=== PATIENT | female | born 1985 | race Caucasian/White ===

== ENCOUNTER → 2017-04-25 | Outpatient (CLI) | payer OTHER ==
[~2017-04-25] MED LIST: ALBU1AER9 INH
[2017-04-25 12:19] LABS: HEMATOCRIT 43.3 % (37-47); HEMOGLOBIN 14.8 g/dL (12.0-16.0); MEAN CORPUSCULAR HEMOGLOBIN 30.8 pg (25-34); MEAN CORPUSCULAR HGB CONC 34.2 g/dl (32-36); PLATELET COUNT 228 K/uL (130-400); RED CELL DISTRIBUTION WIDTH CV 12.6 % (11.5-14.5); RED CELL DISTRIBUTION WIDTH SD 41.1 fL (36.4-46.3); WHITE BLOOD COUNT 7.36 K/uL (4.8-10.8)
== END | disposition home or self-care (01) ==
LOC: C.LAB1850 10:35
PROVIDERS: ATTEND Physician Assistant
DX: N92.6 Irregular menstruation, unspecified (principal)

== ENCOUNTER → 2017-05-21 | Outpatient (CLI) | payer OTHER | END | disposition home or self-care (01) | LOC: C.PAPS 11:38 | PROVIDERS: ATTEND Physician Assistant | DX: Z12.4 Encounter for screening for malignant neoplasm of cervix (principal) ==

== ENCOUNTER 2022-11-05 02:46 | Inpatient (IN) ==
--- NOTE | 2022-11-05 03:07 | Emergency Department Note ---
History of Present Illness General Chief complaint: Chest Pain Stated complaint: CHEST AND BACK PAIN INTERMINTENTLY ON RT SIDE Time Seen by Provider: 11/05/22 02:52 History of Present Illness Maximum Pain Intensity: 3 This 37-year-old female who had a hysterectomy a week ago and continues to smoke presents to the ER complaining of chest pain that goes to her back and shortness of breath. Patient denies abdominal pain, vomiting, diarrhea, flulike illness. Pain started today and has gotten progressively worse. No history of DVT or PE. Home Medications Medication Instructions Recorded Confirmed Type albuterol sulfate 90 mcg/actuation 1 inh inhalation UD PRN for illness 03/08/21 10/19/22 History aerosol inhaler atorvastatin 10 mg tablet 20 mg PO QAM 10/19/22 10/27/22 History sertraline 100 mg tablet (Zoloft) 100 mg PO QAM 10/19/22 10/27/22 History ibuprofen 600 mg tablet 600 mg PO Q8H PRN pain #20 tabs 10/27/22 Rx oxycodone-acetaminophen 5 mg-325 1 tab PO Q6H PRN pain #20 tabs 10/27/22 Rx mg tablet (Percocet) Allergies Allergy/AdvReac Type Severity Reaction Status Date / Time adhesive Allergy Unknown Skin Verified 10/27/22 08:12 blistered under tape (used for gallbladder surgery) hydrocodone Allergy Unknown Itching Verified 10/27/22 08:12 oxycodone [From Percocet] Allergy Unknown Itching Verified 10/27/22 08:12 strawberry Allergy Unknown Rash Verified 10/27/22 08:12 Past Med/Surg History Medical History Anxiety and depression Asthma Diverticular disease Endometriosis History of COVID-19 03/2021 Hypercholesterolemia IBS (irritable bowel syndrome) PCOS (polycystic ovarian syndrome) Surgical History Family history of reaction to anesthesia Daughter- postop hypotension Son- really bad headache Mother- "did not handle anesthesia well and was afraid to be put to sleep" H/O section x3 History of anesthesia reaction Multiple attempts with SAB for initial spinal, had "high spinal" > hx spinal headache/blood patch History of colonoscopy History of esophagogastroduodenoscopy (EGD) History of tooth extraction Hx laparoscopic cholecystectomy 03/2018 S/P scar revision c/s scar endometriosis noted and removed Family History Aunt Cardiac disorder Diabetes Breast cancer maternal - inflammatory Grandmother (Paternal) Cardiac disorder Mother Colorectal cancer, Onset Age: 40 Uncle Colorectal cancer maternal Grandmother (Maternal) Diabetes Other Dyslipidemia Denies family history of Ovarian cancer Social History Smoking Status: Current every day smoker Tobacco Type: Cigarettes Cigarettes Per Day: 6; Second Hand Exposure: No; Do You Dip or Chew Tobacco: No; Hx Alcohol Use: Yes Hx Substance Use: No Preferred Language: Macedonian Communication Ability: Effective Security Alarm Installer Required: No Beliefs That Will Affect Care: None Current Living Situation: Spouse and Family Feels Safe at Home: Yes Assistive Devices: None Review of Systems A total of 10 systems reviewed and were otherwise negative Physical Exam Vital Signs Vital Signs - 24 hr 11/05/22 02:48 11/05/22 03:34 11/05/22 03:36 Temperature 36.8 C Temperature Source Temporal Artery Scan Pulse Rate 82 81 Pulse Rate from SpO2 Sensor Respiratory Rate 18 Respiratory Effort / Characteristics Non-Labored Spontaneous Respiratory Depth Normal Respiratory Pattern Regular Blood Pressure 129/58 L Blood Pressure Mean 81 Blood Pressure Position Semi-fowlers Pulse Oximetry 99 98 Oxygen Delivery Method Room Air Room Air Sepsis Recent Fever Within 48 Hours No Sepsis New/Unexplained Change in Mental Status N/A Sepsis Action Taken by Nursing No Action Required 11/05/22 03:32 11/05/22 04:00 11/05/22 04:30 Temperature Temperature Source Pulse Rate 76 75 77 Pulse Rate from SpO2 Sensor 78 78 79 Respiratory Rate 16 22 15 Respiratory Effort / Characteristics Respiratory Depth Respiratory Pattern Blood Pressure 108/60 94/56 L Blood Pressure Mean 76 68 Blood Pressure Position Pulse Oximetry 98 99 95 Oxygen Delivery Method Room Air Room Air Room Air Sepsis Recent Fever Within 48 Hours Sepsis New/Unexplained Change in Mental Status Sepsis Action Taken by Nursing VITALS: Vitals are noted on the nurse's note and reviewed by myself. Vital signs stable. GENERAL: Pleasant female, in no acute distress, nondiaphoretic, well-developed well-nourished. SKIN: The skin was without rashes, erythema, edema, or bruising. There is no tenting of the skin. Capillary reflex less than 2 seconds. HEAD: Normocephalic atraumatic. EARS: External auditory canals clear, EYES: Pupils equal round and reactive to light and accommodation. Conjunctivae without injection, sclerae without icterus. Extraocular movements intact. NOSE: Patent, turbinates without inflammation or discharge. MOUTH: Mucous membranes moist. Pharynx without erythema or exudate. Uvula midline. Airway patent. Tongue does not deviate. NECK: Supple without nuchal rigidity. No lymphadenopathy. No thyromegaly. Cervical spine is nontender. No JVD. HEART: Regular rate and rhythm LUNGS: Clear to auscultation bilaterally without wheezes, rales or rhonchi. No retractions or accessory muscle use. ABDOMEN: Positive bowel sounds x 4. Normal tympanic percussion. Soft, nonten zeferino, without masses or organomegaly. Blackman sign negative. No guarding or rebound tenderness. No CVA tenderness MUSCULOSKELETAL: No muscle atrophy, erythema, or edema noted. NEURO: Patient was alert and oriented to person place and time. Normal sensation to light and sharp touch. No focal neurological deficits. Course Administered Medications Discontinued Medications Heparin Sodium/Dextrose (Heparin Iv Adult Wt-Based Standard With Bolus Protocol) 1 each IV NOW STA; Protocol Stop: 11/05/22 04:52 Last Admin: 11/05/22 05:04 Dose: Not Given Documented By: HERNANDEZ Acetaminophen (Ofirmev) 1,000 mg in 100 mls @ 400 mls/hr IV NOW STA Stop: 11/05/22 03:59 Last Infusion: 11/05/22 04:19 Dose: 0 mls/hr Documented By: Admin: 11/05/22 03:49 Dose: 400 mls/hr Documented By: HERNANDEZ Ioversol (Ioversol 350 Mg 125ml Prefilled Syringe) 117 ml IV ONCE ONE Stop: 11/05/22 03:28 Last Admin: 11/05/22 03:27 Dose: 117 ml Documented By: ANNIKA Critical Care Time Critical Care Time: Yes Total Critical Care Time: 35 I have personally spent 35 minutes of critical care time in the direct management of this patient. This includes bedside care, interpretation of diagnostic studies, and testing, discussion with consultants, patient, and family members, and other required patient management activities. This 35 minutes is in excess of all separately billable procedures. Medical Decision Making Medical Records Attestation: I reviewed the patient's medical records. Home Medications Current Medication List: was personally reviewed by me Laboratory Data Attestation: I reviewed the patient's lab results. 11/05/22 03:07 11/05/22 03:07 Lab Results 11/05/22 11/05/22 11/05/22 Range/Units 03:07 03:07 03:07 WBC 16.04 H (4.8-10.8) K/ul RBC 4.41 (4.20-5.40) M/uL Hgb 13.7 (12.0-16.0) g/dl POC Hgb (12.0-16.0) g/dl Hct 40.6 (37.0-47.0) % POC Hct (37-47) % MCV 92.1 (80.0-100.0) fL MCH 31.1 (25.0-34.0) pg MCHC 33.7 (32.0-36.0) g/dL RDW Std Deviation 41.0 (36.4-46.3) fL RDW Coeff of Nigel 12.1 (11.5-14.5) % Plt Count 243 (130-400) K/uL MPV 9.6 (9.4-12.4) fL Immature Gran % (Auto) 0.4 % Neut % (Auto) 62.3 % Lymph % (Auto) 22.5 % [place] % (Auto) 8.7 % Eos % (Auto) 5.5 % Baso % (Auto) 0.6 % Neut # (Auto) 9.99 H (1.40-6.50) K/uL Lymph # (Auto) 3.61 H (1.2-3.4) K/uL [place] # (Auto) 1.39 H (0.11-0.59) K/uL Eos # (Auto) 0.89 H (0-0.50) K/uL Baso # (Auto) 0.10 (0-0.2) K/uL Immature Gran # (Auto) 0.06 (0.01-0.20) K/uL PT 9.9 (9.0-12.0) Seconds INR 0.9 (0.9-1.1) APTT 23.4 (21.0-31.0) Seconds PTT Ratio 0.8 POC Sodium (135-144) mmol/L Sodium 134 L (136-145) mmol/L POC Potassium (3.3-5.0) mmol/L Potassium 4.0 (3.5-5.1) mmol/L POC Chloride (101-112) mmol/L Chloride 106 (98-107) mmol/L Carbon Dioxide 21 (21-32) mmol/L POC Total CO2 (24-31) mmol/L Anion Gap 7 (3-11) POC Anion Gap (16-25) mmol/L POC BUN (7-18) mg/dl BUN 16 (6-23) mg/dl Creatinine 0.97 (0.6-1.2) mg/dl POC Creatinine (0.6-1.3) mg/dl Est Cr Clr Drug Dosing 76.9 ml/min Est GFR ( Amer) 87.1 ml/min Est GFR (Non-Af Amer) 75.1 ml/min BUN/Creatinine Ratio 16.5 (10-20) Glucose 92 (70-99(Fasting)) mg/dl POC Glucose (other) (70-99) mg/dl Calcium 9.4 (8.6-10.3) mg/dl POC Ioniz Calcium [place] (1.12-1.32) mmol/l Total Bilirubin 0.3 (0.2-1.0) mg/dl AST 28 (13-39) U/L ALT 51 (7-52) U/L Alkaline Phosphatase 62 (34-104) U/L Troponin I High Sens 4.1 (0-14) pg/ml Total Protein 6.7 (6.0-8.3) gm/dl Albumin 4.0 (3.4-5.0) gm/dl Globulin 2.7 (2.5-4.0) gm/dl Albumin/Globulin Ratio 1.5 (0.9-2) Urine Color Urine Appearance (Clear) Urine pH (4.5-7.5) Ur Specific [place] (1.000-1.030) Urine Protein (Negative) Urine Glucose (UA) (Negative) Urine Ketones (Negative) Urine Blood (Negative) Urine Nitrite (Negative) Urine Bilirubin (Negative) Urine Urobilinogen (Negative) Ur Leukocyte Esterase (Negative) 11/05/22 11/05/22 Range/Units 03:12 03:53 WBC (4.8-10.8) K/ul RBC (4.20-5.40) M/uL Hgb (12.0-16.0) g/dl POC Hgb 13.3 (12.0-16.0) g/dl Hct (37.0-47.0) % POC Hct 39 (37-47) % MCV (80.0-100.0) fL MCH (25.0-34.0) pg MCHC (32.0-36.0) g/dL RDW Std Deviation (36.4-46.3) fL RDW Coeff of Nigel (11.5-14.5) % Plt Count (130-400) K/uL MPV (9.4-12.4) fL Immature Gran % (Auto) % Neut % (Auto) % Lymph % (Auto) % [place] % (Auto) % Eos % (Auto) % Baso % (Auto) % Neut # (Auto) (1.40-6.50) K/uL Lymph # (Auto) (1.2-3.4) K/uL [place] # (Auto) (0.11-0.59) K/uL Eos # (Auto) (0-0.50) K/uL Baso # (Auto) (0-0.2) K/uL Immature Gran # (Auto) (0.01-0.20) K/uL PT (9.0-12.0) Seconds INR (0.9-1.1) APTT (21.0-31.0) Seconds PTT Ratio POC Sodium 137 (135-144) mmol/L Sodium (136-145) mmol/L POC Potassium 4.1 (3.3-5.0) mmol/L Potassium (3.5-5.1) mmol/L POC Chloride 106 (101-112) mmol/L Chloride (98-107) mmol/L Carbon Dioxide (21-32) mmol/L POC Total CO2 21 L (24-31) mmol/L Anion Gap (3-11) POC Anion Gap 15.0 L (16-25) mmol/L POC BUN 19 H (7-18) mg/dl BUN (6-23) mg/dl Creatinine (0.6-1.2) mg/dl POC Creatinine 1.0 (0.6-1.3) mg/dl Est Cr Clr Drug Dosing ml/min Est GFR ( Amer) ml/min Est GFR (Non-Af Amer) ml/min BUN/Creatinine Ratio (10-20) Glucose (70-99(Fasting)) mg/dl POC Glucose (other) 95 (70-99) mg/dl Calcium (8.6-10.3) mg/dl POC Ioniz Calcium [place] 1.14 (1.12-1.32) mmol/l Total Bilirubin (0.2-1.0) mg/dl AST (13-39) U/L ALT (7-52) U/L Alkaline Phosphatase (34-104) U/L Troponin I High Sens (0-14) pg/ml Total Protein (6.0-8.3) gm/dl Albumin (3.4-5.0) gm/dl Globulin (2.5-4.0) gm/dl Albumin/Globulin Ratio (0.9-2) Urine Color Yellow Urine Appearance Clear (Clear) Urine pH 6.0 (4.5-7.5) Ur Specific [place] 1.036 H (1.000-1.030) Urine Protein Negative (Negative) Urine Glucose (UA) Negative (Negative) Urine Ketones Negative (Negative) Urine Blood Negative (Negative) Urine Nitrite Negative (Negative) Urine Bilirubin Negative (Negative) Urine Urobilinogen Negative (Negative) Ur Leukocyte Esterase Negative (Negative) Imaging Data Attestation: I personally reviewed and interpreted this imaging study as follows: Radiologist's Impression: Chest CTA 11/05/22 02:53 CR Exam(s): CTA CHEST IV Amt: 117ml OPTIRAY 350 EXAM: CT Angiography Chest With Intravenous Contrast CLINICAL HISTORY: Reason for exam: Chest Pain, eval for PE, recent OR. TECHNIQUE: Axial computed tomographic angiography images of the chest with intravenous contrast. CTDI is 36.46 mGy and DLP is 851.5 mGy-cm. Automated exposure control was utilized for the study. A dose lowering technique was utilized adhering to the principles of ALARA. MIP reconstructed images were created and reviewed. COMPARISON: 02/01/2015. FINDINGS: Pulmonary arteries: Pulmonary embolus involving subsegmental right lower lobe pulmonary arteries. Aorta: No acute findings. No thoracic aortic aneurysm. Lungs: Unremarkable. No mass. No consolidation. Pleural space: Unremarkable. No significant effusion. No pneumothorax. Heart: Unremarkable. No cardiomegaly. No significant pericardial effusion. No evidence of RV dysfunction. Bones/joints: No acute fracture. No dislocation. Soft tissues: Unremarkable. Lymph nodes: Unremarkable. No enlarged lymph nodes. Gallbladder and bile ducts: Postoperative changes prior cholecystectomy. IMPRESSION: Pulmonary embolus involving subsegmental right lower lobe pulmonary arteries Communications: Call Doctor Pulmonary Embolism Electronically signed by: Marshall Frias MD 11/05/22 04:46 AM MDM Narrative Prior records/ancillary studies reviewed. Triage Nursing notes reviewed. Additional history obtained from family. The patient's history was concerning for chest pain. Differential diagnosis: Etiologies such as cardiac ischemia, aortic dissection, pulmonary embolism, pneumonia, pneumothorax, musculoskeletal, infections, pericarditis, myocarditis, esophageal rupture, gastrointestinal, as well as others were entertained. Physical examination: As above. ER treatment provided: An order was placed for continuous cardiac monitoring. The monitor shows a rate of 60-100 with a sinus rhythm per my interpretation. Patient declined pain medicine Patient was agreeable to Tylenol Medicine is requesting to write for Lovenox for the PE On reassessment the patient felt better. Diagnostic interpretation by me: The electrocardiogram was negative for pathologic change. Order for chest EKG: Normal sinus, normal intervals, no acute ST-T wave changes. Impression normal sinus rhythm independent turbid by myself I think arrhythmia is unlikely. EKG shows normal sinus rhythm with no interval abnormalities such as QT prolongation or WPW. There are no findings to suggest Brugada syndrome. Cardiac monitoring in the emergency department reveals no tachycardic or bradycardic dysrhythmia. Hypertrophic cardiomyopathy was considered but there are no clear historical elements pointing toward this. EKG is not suggestive. The QRS voltage is not extremely large and there are no suggestive Q waves. The labs Independently Interpreted by myself revealed leukocytosis, negative troponin Hypercoagulable work-up ordered for PE Imaging studies: Chest x-ray with no acute consolidation, pneumothorax or free air per my independent interpretation CTA concerning for PE per my independent interpretation. No right heart strain. HEART SCORE: Hx: high/mod/low suspicion: 0 ECG: ST depression/nonspecific changes/normal: 0 Age: Greater than 65/45-64/less than 45: 0 Risk factors: (Hypertension, hyperlipidemia, diabetes, coronary disease, tobacco use, cocaine use): 1 Troponin: Greater than 2 times normal limits/1-2 times normal limits/normal: 0 Total: 1 Consultation: A consultation was placed with the hospitalist. The case was discussed and di agnostics were reviewed. The patient was evaluated in the ER for further treatment. PESI Score Age: 37 Male gender: 0 History of cancer: 0 Heart failure: 0 Chronic lung disease: 0 Pulse >=10/min: 0 Systolic blood pressure <100 mmH Respiratory rate >=0/min: 0 Temperature <36 Celcius: 0 Altered mental status: 0 Arterial oxygen saturation <90 percent: 0 Total: 36 Class I Low risk <66 Class II 66 to 85 Class III High risk 86 to 105 Class IV 106 to 125 Class V >125 Exam and history seem consistent with PE. Labs and diagnostics were independent interpreted by myself. Patient was started on Lovenox per medicine's request. Medicine was consulted and the case was discussed. She will be admitted to the medical service for further evaluation and treatment.By the evaluation outlined above emergent etiologies such as cardiac ischemia, aortic dissection, pneumonia, pneumothorax, infections, pericarditis, myocarditis, gastrointestinal, as well as others were deemed relatively unlikely. The pt informed about the findings as listed above. All questions were answered and pleased with the treatment. The chart was completed utilizing [employer] Speech voice recognition software. Grammatical errors, random word insertions, pronoun errors, and incomplete sentences are an occassional consequence of this system due to software limitations, ambient noise, and hardware issues. Any formal questions or concerns about the content, text, or information contained within the body of this dictation should be directly addressed to the physician research lab assistant for clarification. Impression & Plan Pulmonary embolism Discharge Plan Visit Data Chief Complaint: Chest Pain Stated Complaint: CHEST AND BACK PAIN INTERMINTENTLY ON RT SIDE ED Provider: Shirlene Sinclair ED Midlevel Provider: Theresa Ambriz Discharge Problem: Pulmonary embolism Patient Disposition: Admitted As Inpatient Condition: Good Forms Stand Alone Forms: [facility] Access Prescriptions Prescriptions: No Action albuterol sulfate 90 mcg/actuation Hfa Aerosol Inhaler 1 inh INHALATION UD PRN (Reason: for illness) atorvastatin 10 mg Tablet 20 mg PO QAM sertraline [Zoloft] 100 mg Tablet 100 mg PO QAM oxycodone-acetaminophen [Percocet] 5-325 mg tablet 1 tab PO Q6H PRN (Reason: pain) Qty: 20 0RF ibuprofen 600 mg tablet 600 mg PO Q8H PRN (Reason: pain) Qty: 20 0RF Referrals Referrals: Keturah Saravia DO [Primary Care Provider] - Pulmonary embolism Qualifiers: Pulmonary embolism type: unspecified Chronicity: acute Acute cor pulmonale presence: without acute cor pulmonale Qualified Code(s): I26.99 - Other pulmonary embolism without acute cor pulmonale
[2022-11-05 03:22] LABS: Basophils % (auto) 0.6 %; Eosinophils # (auto) 0.89 K/uL (0-0.50); Eosinophils % (auto) 5.5 %; Hematocrit (blood only) 40.6 % (37.0-47.0); Hemoglobin 13.7 g/dl (12.0-16.0); Immature Granulocytes # (auto) 0.06 K/uL (0.01-0.20); Immature Granulocytes % (auto) 0.4 %; Lymphocytes # (auto) 3.61 K/uL (1.2-3.4); Lymphocytes % (auto) 22.5 %; Mean Corpuscular Hemoglobin 31.1 pg (25.0-34.0); Mean Corpuscular Hgb Conc 33.7 g/dL (32.0-36.0); Mean Corpuscular Volume 92.1 fL (80.0-100.0); Mean Platelet Volume 9.6 fL (9.4-12.4); Monocytes # (auto) 1.39 K/uL (0.11-0.59); Monocytes % (auto) 8.7 %; Neutrophils # (auto) 9.99 K/uL (1.40-6.50); Neutrophils % (auto) 62.3 %; Platelet Count 243 K/uL (130-400); RDW Coefficient of Variation 12.1 % (11.5-14.5); Red Blood Count 4.41 M/uL (4.20-5.40); White Blood Count 16.04 K/ul (4.8-10.8)
[2022-11-05 03:24] LABS: iSTAT Hemoglobin 13.3 g/dl (12.0-16.0); iSTAT Ionized Calcium 1.14 mmol/l (1.12-1.32); iSTAT Potassium 4.1 mmol/L (3.3-5.0)
[2022-11-05] MEDS ORDERED: IOVERSOL 350 MG 125mL Prefilled Syringe IV ONE (03:27)
[2022-11-05 03:36] LABS: Albumin Globulin Ratio 1.5 (0.9-2); BUN Creatinine Ratio 16.5 (10-20); Bilirubin,Total 0.3 mg/dl (0.2-1.0); Calcium 9.4 mg/dl (8.6-10.3); Creatinine Clr Calc Pharmacy 76.9 ml/min; Est GFR (African American) 87.1 ml/min; Est GFR (Non-African American) 75.1 ml/min; Globulin 2.7 gm/dl (2.5-4.0); Total Protein 6.7 gm/dl (6.0-8.3)
[2022-11-05 03:42] LABS: Troponin I High Sensitivity 4.1 pg/ml (0-14)
[2022-11-05] MEDS ORDERED: ACETAMINOPHEN 1,000 MG/100 ML VIAL IV STA (03:45)
[2022-11-05 04:05] LABS: Appearance Urine Clear (Clear); Bilirubin Urine Negative (Negative); Blood Urine Negative (Negative); Color Urine Yellow; Glucose Urine UA Negative (Negative); Ketones Urine Negative (Negative); Leukocyte Esterase Urine Negative (Negative); Nitrite Urine Negative (Negative); Protein Urine Negative (Negative); Specific Gravity Urine 1.036 (1.000-1.030); Urobilinogen Urine Negative (Negative)
[2022-11-05 04:13] LABS: INR 0.9 (0.9-1.1); Partial Thromboplastin Ratio 0.8; Partial Thromboplastin Time 23.4 Seconds (21.0-31.0); Prothrombin Time 9.9 Seconds (9.0-12.0)
--- NOTE | 2022-11-05 04:47 | CT Scan Report ---
Exam(s): CTA CHEST IV Amt: 117ml OPTIRAY 350 EXAM: CT Angiography Chest With Intravenous Contrast CLINICAL HISTORY: Reason for exam: Chest Pain, eval for PE, recent OR. TECHNIQUE: Axial computed tomographic angiography images of the chest with intravenous contrast. CTDI is 36.46 mGy and DLP is 851.5 mGy-cm. Automated exposure control was utilized for the study. A dose lowering technique was utilized adhering to the principles of ALARA. MIP reconstructed images were created and reviewed. COMPARISON: 02/01/2015. FINDINGS: Pulmonary arteries: Pulmonary embolus involving subsegmental right lower lobe pulmonary arteries. Aorta: No acute findings. No thoracic aortic aneurysm. Lungs: Unremarkable. No mass. No consolidation. Pleural space: Unremarkable. No significant effusion. No pneumothorax. Heart: Unremarkable. No cardiomegaly. No significant pericardial effusion. No evidence of RV dysfunction. Bones/joints: No acute fracture. No dislocation. Soft tissues: Unremarkable. Lymph nodes: Unremarkable. No enlarged lymph nodes. Gallbladder and bile ducts: Postoperative changes prior cholecystectomy. IMPRESSION: Pulmonary embolus involving subsegmental right lower lobe pulmonary arteries Communications: Call Doctor Pulmonary Embolism Electronically signed by: Marshall Frias MD 11/05/22 04:46 AM
[2022-11-05] MEDS ORDERED: Heparin IV Adult Wt-Based Standard WITH Bolus Protocol IV STA (04:51)
[2022-11-05] MEDS ORDERED: SODIUM CHLORIDE 0.9% 1000ML 1,000 ML IV ONE (05:03)
[2022-11-05] MEDS ORDERED: HEPARIN SOD (PORCINE) 1000 UNIT/ML IV ONE (05:07)
[2022-11-05] MEDS ORDERED: HEPARIN SODIUM/DEXTROSE 25,000 UNITS/500 ML BAG IV SCH (05:15)
[2022-11-05] MEDS ORDERED: traMADol HCL 50 MG TABLET PO STA (05:47)
--- NOTE | 2022-11-05 05:47 | History & Physical Report ---
Date of Service November 05, 2022 Assessment & Plan (1) Pulmonary embolism: Plan: New onset Recent gynecologic surgery Rule out LE clot as source hyperlipidemia, on statin Rx mood disorder, at baseline ongoing tobacco abuse Medical telemetry Weight-based Lovenox for now (Dr. Santos of [facility] made aware over the phone of patient issue following recent surgery and is agreeable to plan.) Patient expressed interest in Eliquis Rx for home anticoagulation. LE venous Dopplers rule out DVT Analgesia, patient agreeable to tramadol for pain not relieved by Tylenol given troublesome constipation side effects from other narcotics DVT prophylaxis. Lovenox Full code Text document was generated using [employer] voice recognition software. It may contain grammatical or spelling errors. Kindly contact undersigned for clarification of any documentation item in question. History of Present Illness Chief Complaint: Chest pain, shortness of breath Primary Care Provider: Keturah Saravia DO History obtained from patient, family, and records. Medical history significant for hyperlipidemia, mood disorder, ongoing tobacco abuse. Patient underwent robotic assisted laparoscopic hysterectomy, bilateral salpingectomy for menorrhagia/pelvic pain at same-day surgery by [facility] sports psychologist 9 days ago. No unusual bleeding postprocedure. Patient struggled with constipation issues which she attributed to narcotics. Trying to keep active post procedure. Yesterday, patient noted pleuritic right-sided chest pain with shortness of breath. No unusual leg swelling. No prior history of blood clots. Family history of a cousin who had a blood clot attributed to oral contraceptive pills. Patient brought to the ER by for evaluation. 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 Allergies Allergy/AdvReac Type Severity Reaction Status Date / Time adhesive Allergy Unknown Skin Verified 10/27/22 08:12 blistered under tape (used for gallbladder surgery) hydrocodone Allergy Unknown Itching Verified 10/27/22 08:12 oxycodone [From Percocet] Allergy Unknown Itching Verified 10/27/22 08:12 strawberry Allergy Unknown Rash Verified 10/27/22 08:12 Home Medications Medication Instructions Recorded Confirmed Type atorvastatin 10 mg tablet 20 mg PO QAM 10/19/22 10/27/22 History sertraline 100 mg tablet (Zoloft) 100 mg PO QAM 10/19/22 10/27/22 History ibuprofen 600 mg tablet 600 mg PO Q8H PRN pain #20 tabs 10/27/22 Rx ondansetron HCl 4 mg tablet 4 mg PO Q8H PRN Nausea And Vomiting 11/05/22 11/05/22 History Past Med/Surg History Medical History Anxiety and depression Asthma Diverticular disease Endometriosis History of COVID-19 03/2021 Hypercholesterolemia IBS (irritable bowel syndrome) PCOS (polycystic ovarian syndrome) Surgical History Family history of reaction to anesthesia Daughter- postop hypotension Son- really bad headache Mother- "did not handle anesthesia well and was afraid to be put to sleep" H/O section x3 History of anesthesia reaction Multiple attempts with SAB for initial spinal, had "high spinal" > hx spinal headache/blood patch History of colonoscopy History of esophagogastroduodenoscopy (EGD) History of tooth extraction Hx laparoscopic cholecystectomy 03/2018 S/P scar revision c/s scar endometriosis noted and removed Family History Aunt Cardiac disorder Diabetes Breast cancer maternal - inflammatory Grandmother (Paternal) Cardiac disorder Mother Colorectal cancer, Onset Age: 40 Uncle Colorectal cancer maternal Grandmother (Maternal) Diabetes Other Dyslipidemia Denies family history of Ovarian cancer Social History Smoking Status: Current every day smoker Tobacco Type: Cigarettes Cigarettes Per Day: 6; Second Hand Exposure: No; Do You Dip or Chew Tobacco: No; Hx Alcohol Use: Yes Hx Substance Use: No Preferred Language: Azeri Communication Ability: Effective Engineering Supervisor Required: No Beliefs That Will Affect Care: None Current Living Situation: Spouse and Family Feels Safe at Home: Yes Assistive Devices: None Review of Systems Review of Systems: As per HPI, all other systems reviewed and negative Physical Exam Physical Exam: GENERAL: Slightly uncomfortable, obese, tearful, no respiratory distress SKIN: Normal color, warm HEENT: [place] palpebral conjunctivae, no ptosis, dry buccal mucosa NECK : Supple, no tenderness CHEST : CTA, no tenderness HEART : RRR, no obvious murmurs ABDOMEN: Some distention, nontender EXTREMITIES : No LE swelling/tenderness, no other conspicuous deformities noted NEUROLOGIC : Coherent, no facial asymmetry, no other gross focality Results & Data Results & Data Vital Signs (Past 12 Hours) Vital Signs Temp Pulse Resp BP Pulse Ox O2 Del Method 11/05/22 05:30 74 15 96/69 L 98 Room Air 11/05/22 05:12 106/62 11/05/22 05:00 83 18 100/67 98 Room Air 11/05/22 04:30 77 15 94/56 L 95 Room Air 11/05/22 04:00 75 22 108/60 99 Room Air 11/05/22 03:32 76 16 98 Room Air 11/05/22 03:36 98 Room Air 11/05/22 03:34 81 11/05/22 02:48 36.8 C 82 18 129/58 L 99 Room Air Laboratory Results Laboratory Results WBC 16.04 K/ul (4.8-10.8) H 11/05/22 03:07 RBC 4.41 M/uL (4.20-5.40) 11/05/22 03:07 Hgb 13.7 g/dl (12.0-16.0) 11/05/22 03:07 POC Hgb 13.3 g/dl (12.0-16.0) 11/05/22 03:12 Hct 40.6 % (37.0-47.0) 11/05/22 03:07 POC Hct 39 % (37-47) 11/05/22 03:12 MCV 92.1 fL (80.0-100.0) 11/05/22 03:07 MCH 31.1 pg (25.0-34.0) 11/05/22 03:07 MCHC 33.7 g/dL (32.0-36.0) 11/05/22 03:07 RDW Std Deviation 41.0 fL (36.4-46.3) 11/05/22 03:07 RDW Coeff of Nigel 12.1 % (11.5-14.5) 11/05/22 03:07 Plt Count 243 K/uL (130-400) 11/05/22 03:07 MPV 9.6 fL (9.4-12.4) 11/05/22 03:07 Immature Gran % (Auto) 0.4 % 11/05/22 03:07 Neut % (Auto) 62.3 % 11/05/22 03:07 Lymph % (Auto) 22.5 % 11/05/22 03:07 [place] % (Auto) 8.7 % 11/05/22 03:07 Eos % (Auto) 5.5 % 11/05/22 03:07 Baso % (Auto) 0.6 % 11/05/22 03:07 Neut # (Auto) 9.99 K/uL (1.40-6.50) H 11/05/22 03:07 Lymph # (Auto) 3.61 K/uL (1.2-3.4) H 11/05/22 03:07 [place] # (Auto) 1.39 K/uL (0.11-0.59) H 11/05/22 03:07 Eos # (Auto) 0.89 K/uL (0-0.50) H 11/05/22 03:07 Baso # (Auto) 0.10 K/uL (0-0.2) 11/05/22 03:07 Immature Gran # (Auto) 0.06 K/uL (0.01-0.20) 11/05/22 03:07 PT 9.9 Seconds (9.0-12.0) 11/05/22 03:07 INR 0.9 (0.9-1.1) 11/05/22 03:07 APTT 23.4 Seconds (21.0-31.0) 11/05/22 03:07 PTT Ratio 0.8 11/05/22 03:07 POC Sodium 137 mmol/L (135-144) 11/05/22 03:12 Sodium 134 mmol/L (136-145) L 11/05/22 03:07 POC Potassium 4.1 mmol/L (3.3-5.0) 11/05/22 03:12 Potassium 4.0 mmol/L (3.5-5.1) 11/05/22 03:07 POC Chloride 106 mmol/L (101-112) 11/05/22 03:12 Chloride 106 mmol/L (98-107) 11/05/22 03:07 Carbon Dioxide 21 mmol/L (21-32) 11/05/22 03:07 POC Total CO2 21 mmol/L (24-31) L 11/05/22 03:12 Anion Gap 7 (3-11) 11/05/22 03:07 POC Anion Gap 15.0 mmol/L (16-25) L 11/05/22 03:12 POC BUN 19 mg/dl (7-18) H 11/05/22 03:12 BUN 16 mg/dl (6-23) 11/05/22 03:07 Creatinine 0.97 mg/dl (0.6-1.2) 11/05/22 03:07 POC Creatinine 1.0 mg/dl (0.6-1.3) 11/05/22 03:12 Est Cr Clr Drug Dosing 76.9 ml/min 11/05/22 03:07 Est GFR ( Amer) 87.1 ml/min 11/05/22 03:07 Est GFR (Non-Af Amer) 75.1 ml/min 11/05/22 03:07 BUN/Creatinine Ratio 16.5 (10-20) 11/05/22 03:07 Glucose 92 mg/dl (70-99(Fasting)) 11/05/22 03:07 POC Glucose (other) 95 mg/dl (70-99) 11/05/22 03:12 Calcium 9.4 mg/dl (8.6-10.3) 11/05/22 03:07 POC Ioniz Calcium [place] 1.14 mmol/l (1.12-1.32) 11/05/22 03:12 Total Bilirubin 0.3 mg/dl (0.2-1.0) 11/05/22 03:07 AST 28 U/L (13-39) 11/05/22 03:07 ALT 51 U/L (7-52) 11/05/22 03:07 Alkaline Phosphatase 62 U/L (34-104) 11/05/22 03:07 Troponin I High Sens 4.1 pg/ml (0-14) 11/05/22 03:07 Total Protein 6.7 gm/dl (6.0-8.3) 11/05/22 03:07 Albumin 4.0 gm/dl (3.4-5.0) 11/05/22 03:07 Globulin 2.7 gm/dl (2.5-4.0) 11/05/22 03:07 Albumin/Globulin Ratio 1.5 (0.9-2) 11/05/22 03:07 Urine Color Yellow 11/05/22 03:53 Urine Appearance Clear (Clear) 11/05/22 03:53 Urine pH 6.0 (4.5-7.5) 11/05/22 03:53 Ur Specific [place] 1.036 (1.000-1.030) H 11/05/22 03:53 Urine Protein Negative (Negative) 11/05/22 03:53 Urine Glucose (UA) Negative (Negative) 11/05/22 03:53 Urine Ketones Negative (Negative) 11/05/22 03:53 Urine Blood Negative (Negative) 11/05/22 03:53 Urine Nitrite Negative (Negative) 11/05/22 03:53 Urine Bilirubin Negative (Negative) 11/05/22 03:53 Urine Urobilinogen Negative (Negative) 11/05/22 03:53 Ur Leukocyte Esterase Negative (Negative) 11/05/22 03:53 Impressions Chest CTA 11/05/22 02:53 CR Exam(s): CTA CHEST IV Amt: 117ml OPTIRAY 350 EXAM: CT Angiography Chest With Intravenous Contrast CLINICAL HISTORY: Reason for exam: Chest Pain, eval for PE, recent OR. TECHNIQUE: Axial computed tomographic angiography images of the chest with intravenous contrast. CTDI is 36.46 mGy and DLP is 851.5 mGy-cm. Automated exposure control was utilized for the study. A dose lowering technique was utilized adhering to the principles of ALARA. MIP reconstructed images were created and reviewed. COMPARISON: 02/01/2015. FINDINGS: Pulmonary arteries: Pulmonary embolus involving subsegmental right lower lobe pulmonary arteries. Aorta: No acute findings. No thoracic aortic aneurysm. Lungs: Unremarkable. No mass. No consolidation. Pleural space: Unremarkable. No significant effusion. No pneumothorax. Heart: Unremarkable. No cardiomegaly. No significant pericardial effusion. No evidence of RV dysfunction. Bones/joints: No acute fracture. No dislocation. Soft tissues: Unremarkable. Lymph nodes: Unremarkable. No enlarged lymph nodes. Gallbladder and bile ducts: Postoperative changes prior cholecystectomy. IMPRESSION: Pulmonary embolus involving subsegmental right lower lobe pulmonary arteries Communications: Call Doctor Pulmonary Embolism Electronically signed by: Marshall Frias MD 11/05/22 04:46 AM Diagnostic Findings EKG as per my interpretation :Rate 85, NSR, normal axis, no ischemia, low voltage (1) Pulmonary embolism Acute cor pulmonale presence: without acute cor pulmonale Chronicity: acute Pulmonary embolism type: unspecified Qualified Code(s): I26.99 - Other pulmonary embolism without acute cor pulmonale
[2022-11-05] MEDS ORDERED: LORazepam 0.5 MG TAB PO PRN (05:54)
[2022-11-05] MEDS ORDERED: PROMETHAZINE HCL 12.5 MG in SODIUM CHLORIDE 0.9% 50 ML IV PRN (05:54)
[2022-11-05] MEDS ORDERED: ACETAMINOPHEN 1,000 MG/100 ML VIAL IV PRN (05:54)
[2022-11-05] MEDS ORDERED: ACETAMINOPHEN 325 MG TAB PO PRN ×2 (05:54→08:38)
[2022-11-05] MEDS ORDERED: ENOXAPARIN 80 MG/0.8 ML SYR SQ STA (05:55)
[2022-11-05] MEDS ORDERED: ENOXAPARIN 1 MG/KG SC SCH (06:00)
[2022-11-05 06:29] LABS: Magnesium 1.8 mg/dl (1.7-2.4)
[2022-11-05 06:36] LABS: Troponin I High Sensitivity 5.3 pg/ml (0-14)
[2022-11-05] MEDS ORDERED: POLYETHYLENE (MIRALAX) 17 GM PACK PO PRN (08:38)
[2022-11-05] MEDS ORDERED: DOCUSATE SODIUM/SENNA 50/8.6MG TAB PO SCH (09:00)
[2022-11-05] MEDS: ATORVASTATIN 20 MG TAB PO SCH (10:23)
[2022-11-05] MEDS: SERTRALINE HCL 100 MG TABLET PO SCH (10:24)
--- NOTE | 2022-11-05 10:37 | XRay Report ---
XR chest 1V portable CLINICAL HISTORY: Chest pain, nonspecific TECHNIQUE: Single frontal radiograph of the chest was obtained. Comparison: Comparison is made to chest radiograph 10/20/2015 FINDINGS: No lines and tubes are seen. The cardiomediastinal silhouette is normal. The lungs are clear. No evid ence of pleural effusion or pneumothorax. IMPRESSION: No acute chest disease. ACT 112: Negative or not required by law. Electronically signed by: Marcelino Morales M.D. 11/05/2022 10:35 AM
[2022-11-05] MEDS ORDERED: diphenhydrAMINE HCL 25 MG/10 ML UDC PO PRN (10:59)
[2022-11-05] MEDS: MoRPHine SULFATE 2 MG/ML CARP IV PRN ×2 (11:48→20:24)
--- NOTE | 2022-11-05 11:49 | Electrocardiogram Report ---
Test Reason : Blood Pressure : / mmHG Vent. Rate : 086 BPM Atrial Rate : 086 BPM P-R Int : 146 ms QRS Dur : 082 ms QT Int : 394 ms P-R-T Axes : 052 061 055 degrees QTc Int : 471 ms Normal sinus rhythm Low voltage QRS Borderline ECG When compared with ECG of 22-AUG-2022 11:48, No significant change was found Confirmed by Kiran Patino ([id number]) on 11/05/2022 11:48:55 AM Referred By: REFERRED SELF Confirmed By:Kiran Patino
--- NOTE | 2022-11-05 14:14 | Hospitalist Progress Note ---
Date of Service November 05, 2022 Assessment & Plan (1) Pulmonary embolism: Plan: Acute pulmonary embolism H/O Recent gynecologic surgery --CTA:Pulmonary embolus involving subsegmental right lower lobe pulmonary arteries --ECHO: Normal left ventricle wall thickness. Left ventricle wall motion is normal. Left ventricle systolic function is normal. EF 60 to 65%. Right ventricle is normal size and function. Left ventricle diastolic function is normal. No significant valvular disease. --Venous Doppler: pending -- Hypercoagulable work-up pending Continue therapeutic Lovenox Transition to Eliquis as able Saturating well on room air Ongoing tobacco use disorder Counseled to quit smoking Hyperlipidemia Continue Lipitor Mood disorder Continue Zoloft DVT Px: Lovenox SQ Code Status Full code Admission and Anticipated Discharge Date Admission Date: November 05, 2022 Subjective Patient is seen and examined at bedside States having pleuritic pain with deep inspiration predominantly right side Denies any significant dyspnea Also denies any dizziness, nausea, vomiting, abdominal pain Discussed with patient's family at bedside Denies any bleeding issues Review of Systems Review of Systems: All systems reviewed & are unremarkable except as noted in Subjective Physical Exam Physical Exam: Physical Exam: Vitals signs as noted above General Appearance:Moderately built and nourished, no apparent distress Head: normocephalic, Atraumatic Eyes: normal inspection, EOMI Neck: supple, Trachea midline Respiratory/Chest: Normal breath sounds, CTA, No accessory muscle use Cardiovascular: S1, S2, No murmur Abdomen/GI:Soft, Non tender, Bowel sounds present Extremities/Musculoskeletal:normal inspection, no edema Neurologic/Psych:AAOX3, grossly no focal neurological deficits Skin: normal color, warm Results & Data Results & Data Vital Signs (Past 12 Hours) Vital Signs Temp Pulse Pulse Pulse Resp BP BP 11/05/22 12:02 37.0 C 73 16 108/74 11/05/22 08:45 80 11/05/22 08:40 36.9 C 77 18 108/69 11/05/22 07:00 73 16 11/05/22 07:00 105/62 11/05/22 06:59 116/65 11/05/22 06:59 75 15 11/05/22 06:00 75 16 11/05/22 05:30 74 15 96/69 L 11/05/22 05:12 106/62 11/05/22 05:00 83 18 100/67 11/05/22 04:30 77 15 94/56 L 11/05/22 04:00 75 22 108/60 11/05/22 03:32 76 16 11/05/22 03:36 11/05/22 03:34 81 11/05/22 02:48 36.8 C 82 18 129/58 L Pulse Ox O2 Del Method 11/05/22 12:02 97 Room Air 11/05/22 08:45 11/05/22 08:40 98 Room Air 11/05/22 07:00 98 11/05/22 07:00 11/05/22 06:59 11/05/22 06:59 98 11/05/22 06:00 97 11/05/22 05:30 98 Room Air 11/05/22 05:12 11/05/22 05:00 98 Room Air 11/05/22 04:30 95 Room Air 11/05/22 04:00 99 Room Air 11/05/22 03:32 98 Room Air 11/05/22 03:36 98 Room Air 11/05/22 03:34 11/05/22 02:48 99 Room Air Laboratory Results Short CBC 11/05/22 Range/Units 03:07 WBC 16.04 H (4.8-10.8) K/ul Hgb 13.7 (12.0-16.0) g/dl Hct 40.6 (37.0-47.0) % Plt Count 243 (130-400) K/uL BMP 11/05/22 03:07 Sodium 134 L Potassium 4.0 Chloride 106 Carbon Dioxide 21 BUN 16 Creatinine 0.97 Glucose 92 Calcium 9.4 Liver Function 11/05/22 Range/Units 03:07 Total Bilirubin 0.3 (0.2-1.0) mg/dl AST 28 (13-39) U/L ALT 51 (7-52) U/L Alkaline Phosphatase 62 (34-104) U/L Albumin 4.0 (3.4-5.0) gm/dl Urine 11/05/22 Range/Units 03:53 Urine Color Yellow Urine Appearance Clear (Clear) Urine pH 6.0 (4.5-7.5) Ur Specific [place] 1.036 H (1.000-1.030) Urine Protein Negative (Negative) Urine Glucose (UA) Negative (Negative) (1) Pulmonary embolism Acute cor pulmonale presence: without acute cor pulmonale Chronicity: acute Pulmonary embolism type: unspecified Qualified Code(s): I26.99 - Other pulmonary embolism without acute cor pulmonale
[2022-11-05] MEDS: traMADol HCL 50 MG TABLET PO PRN ×2 (15:01→22:27)
--- NOTE | 2022-11-05 17:53 | Ultrasound Report ---
US venous doppler LE BI CLINICAL HISTORY: pe workup TECHNIQUE: Bilateral lower extremity real-time compression venous ultrasound with Color Doppler imagi ng. Utilizing real-time ultrasonic imaging multiple real time high-resolution ultrasonic images with compression and noncompression maneuvers of the deep venous system in addition to color doppler imagi ng were performed from the common femoral vein through the proximal calf veins. COMPARISON: Comparison is made to left lower extremity Doppler ultrasound 10/05/2014 FINDINGS/IMPRESSION: Currently there is normal compressibility of the deep venous system from the common femoral vein thro ugh the proximal calf veins. No superficial venous thrombosis is identified. ACT 112: Negative or not required by law. Electronically signed by: Marcelino Morales M.D. 11/05/2022 5:52 PM
[2022-11-05] MEDS: ENOXAPARIN 80 MG/0.8 ML SYR SQ SCH (18:24)
[2022-11-05] MEDS: DOCUSATE SODIUM/SENNA 50/8.6MG TAB PO SCH (20:27)
[2022-11-06] MEDS: MoRPHine SULFATE 2 MG/ML CARP IV PRN (02:32)
[2022-11-06] MEDS: ENOXAPARIN 80 MG/0.8 ML SYR SQ SCH (05:45)
[2022-11-06] MEDS: ATORVASTATIN 20 MG TAB PO SCH (07:52)
[2022-11-06] MEDS: SERTRALINE HCL 100 MG TABLET PO SCH (07:52)
[2022-11-06] MEDS: DOCUSATE SODIUM/SENNA 50/8.6MG TAB PO SCH (07:52)
[2022-11-06] MEDS: traMADol HCL 50 MG TABLET PO PRN ×2 (07:52→14:47)
[2022-11-06 08:14] LABS: Basophils # (auto) 0.11 K/uL (0-0.2); Basophils % (auto) 1.1 %; Eosinophils # (auto) 0.79 K/uL (0-0.50); Eosinophils % (auto) 7.6 %; Hemoglobin 13.1 g/dl (12.0-16.0); Immature Granulocytes # (auto) 0.08 K/uL (0.01-0.20); Immature Granulocytes % (auto) 0.8 %; Lymphocytes # (auto) 3.01 K/uL (1.2-3.4); Lymphocytes % (auto) 28.8 %; Mean Corpuscular Hemoglobin 30.7 pg (25.0-34.0); Mean Corpuscular Hgb Conc 32.8 g/dL (32.0-36.0); Mean Corpuscular Volume 93.7 fL (80.0-100.0); Mean Platelet Volume 9.6 fL (9.4-12.4); Monocytes % (auto) 7.7 %; Neutrophils # (auto) 5.66 K/uL (1.40-6.50); Platelet Count 226 K/uL (130-400); RDW Coefficient of Variation 12.1 % (11.5-14.5); RDW Standard Deviation 41.6 fL (36.4-46.3); Red Blood Count 4.27 M/uL (4.20-5.40); White Blood Count 10.45 K/ul (4.8-10.8)
[2022-11-06 08:30] LABS: BUN Creatinine Ratio 12.5 (10-20); Creatinine Clr Calc Pharmacy 92.6 ml/min; Est GFR (African American) 109.9 ml/min; Est GFR (Non-African American) 94.9 ml/min; Potassium 4.4 mmol/L (3.5-5.1)
--- NOTE | 2022-11-06 13:12 | Hospitalist Progress Note ---
Date of Service November 06, 2022 Assessment & Plan (1) Pulmonary embolism: Plan: Acute pulmonary embolism H/O Recent gynecologic surgery --CTA:Pulmonary embolus involving subsegmental right lower lobe pulmonary arteries --ECHO: Normal left ventricle wall thickness. Left ventricle wall motion is normal. Left ventricle systolic function is normal. EF 60 to 65%. Right ventricle is normal size and function. Left ventricle diastolic function is normal. No significant valvular disease. --Venous Doppler:Currently there is normal compressibility of the deep venous system from the common femoral vein through the proximal calf veins. No superficial venous thrombosis is identified. -- Hypercoagulable work-up pending Continue therapeutic Lovenox>> transition to Eliquis as per patient's preference Saturating well on room air Advised to follow-up with PCP, hematology as outpatient Ongoing tobacco use disorder Counseled to quit smoking Hyperlipidemia Continue Lipitor Mood disorder Continue Zoloft DVT Px: Lovenox SQ Code Status Full code Disposition Home Admission and Anticipated Discharge Date Admission Date: November 05, 2022 Subjective Patient is seen and examined at bedside Pleuritic pain much improved No new complaints Denies any dyspnea, dizziness, nausea, vomiting, abdominal pain No bleeding issues while on therapeutic Lovenox Plan to be discharged home today Review of Systems Review of Systems: All systems reviewed & are unremarkable except as noted in Subjective Physical Exam Physical Exam: Physical Exam: Vitals signs as noted above General Appearance:Moderately built and nourished, no apparent distress Head: normocephalic, Atraumatic Eyes: normal inspection, EOMI Neck: supple, Trachea midline Respiratory/Chest: Normal breath sounds, CTA, No accessory muscle use Cardiovascular: S1, S2, No murmur Abdomen/GI:Soft, Non tender, Bowel sounds present Extremities/Musculoskeletal:normal inspection, no edema Neurologic/Psych:AAOX3, grossly no focal neurological deficits Skin: normal color, warm Results & Data Results & Data Vital Signs (Past 12 Hours) Vital Signs Temp Pulse Pulse Pulse Pulse Resp BP 11/06/22 11:24 37.3 C 47 L 18 102/66 11/06/22 07:34 37.0 C 77 16 11/06/22 05:56 80 11/06/22 05:56 80 11/06/22 01:45 BP Pulse Ox O2 Del Method 11/06/22 11:24 95 Room Air 11/06/22 07:34 101/63 98 Room Air 08/14/23 05:56 11/06/22 05:56 11/06/22 01:45 Room Air Laboratory Results Short CBC 11/06/22 Range/Units 07:36 WBC 10.45 (4.8-10.8) K/ul Hgb 13.1 (12.0-16.0) g/dl Hct 40.0 (37.0-47.0) % Plt Count 226 (130-400) K/uL BMP 11/06/22 07:36 Sodium 138 Potassium 4.4 Chloride 108 H Carbon Dioxide 27 BUN 10 Creatinine 0.80 Glucose 87 Calcium 9.0 (1) Pulmonary embolism Acute cor pulmonale presence: without acute cor pulmonale Chronicity: acute Pulmonary embolism type: unspecified Qualified Code(s): I26.99 - Other pulmonary embolism without acute cor pulmonale
--- NOTE | 2022-11-06 13:29 | Discharge Summary ---
Date of Service November 06, 2022 Admission HPI Per Admitting Provider History obtained from patient, family, and records. Medical history significant for hyperlipidemia, mood disorder, ongoing tobacco abuse. Patient underwent robotic assisted laparoscopic hysterectomy, bilateral salpin gectomy for menorrhagia/pelvic pain at same-day surgery by [facility] senior research executive 9 days ago. No unusual bleeding postprocedure. Patient struggled with constipation issues which she attributed to narcotics. Trying to keep active post procedure. Yesterday, patient noted pleuritic right-sided chest pain with shortness of breath. No unusual leg swelling. No prior history of blood clots. Family history of a cousin who had a blood clot attributed to oral contraceptive pills. Patient brought to the ER by for evaluation. 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 Admission Exam Per Admitting Provider GENERAL: Slightly uncomfortable, obese, tearful, no respiratory distress SKIN: Normal color, warm HEENT: [place] palpebral conjunctivae, no ptosis, dry buccal mucosa NECK : Supple, no tenderness CHEST : CTA, no tenderness HEART : RRR, no obvious murmurs ABDOMEN: Some distention, nontender EXTREMITIES : No LE swelling/tenderness, no other conspicuous deformities noted NEUROLOGIC : Coherent, no facial asymmetry, no other gross focality Principal Diagnosis Acute pulmonary embolism Discharge Data Allergies Allergy/AdvReac Type Severity Reaction Status Date / Time adhesive Allergy Unknown Skin Verified 10/27/22 08:12 blistered under tape (used for gallbladder surgery) hydrocodone Allergy Unknown Itching Verified 10/27/22 08:12 oxycodone [From Percocet] Allergy Unknown Itching Verified 10/27/22 08:12 strawberry Allergy Unknown Rash Verified 10/27/22 08:12 Consultations 11/05/22 04:54 ED Decision to Admit Stat Procedures Performed Laboratory Results WBC 10.45 K/ul (4.8-10.8) 11/06/22 07:36 RBC 4.27 M/uL (4.20-5.40) 11/06/22 07:36 Hgb 13.1 g/dl (12.0-16.0) 11/06/22 07:36 POC Hgb 13.3 g/dl (12.0-16.0) 11/05/22 03:12 Hct 40.0 % (37.0-47.0) 11/06/22 07:36 POC Hct 39 % (37-47) 11/05/22 03:12 MCV 93.7 fL (80.0-100.0) 11/06/22 07:36 MCH 30.7 pg (25.0-34.0) 11/06/22 07:36 MCHC 32.8 g/dL (32.0-36.0) 11/06/22 07:36 RDW Std Deviation 41.6 fL (36.4-46.3) 11/06/22 07:36 RDW Coeff of Nigel 12.1 % (11.5-14.5) 11/06/22 07:36 Plt Count 226 K/uL (130-400) 11/06/22 07:36 MPV 9.6 fL (9.4-12.4) 11/06/22 07:36 Immature Gran % (Auto) 0.8 % 11/06/22 07:36 Neut % (Auto) 54.0 % 11/06/22 07:36 Lymph % (Auto) 28.8 % 11/06/22 07:36 [place] % (Auto) 7.7 % 11/06/22 07:36 Eos % (Auto) 7.6 % 11/06/22 07:36 Baso % (Auto) 1.1 % 11/06/22 07:36 Neut # (Auto) 5.66 K/uL (1.40-6.50) 11/06/22 07:36 Lymph # (Auto) 3.01 K/uL (1.2-3.4) 11/06/22 07:36 [place] # (Auto) 0.80 K/uL (0.11-0.59) H 11/06/22 07:36 Eos # (Auto) 0.79 K/uL (0-0.50) H 11/06/22 07:36 Baso # (Auto) 0.11 K/uL (0-0.2) 11/06/22 07:36 Immature Gran # (Auto) 0.08 K/uL (0.01-0.20) 11/06/22 07:36 PT 9.9 Seconds (9.0-12.0) 11/05/22 03:07 INR 0.9 (0.9-1.1) 11/05/22 03:07 APTT 23.4 Seconds (21.0-31.0) 11/05/22 03:07 PTT Ratio 0.8 11/05/22 03:07 POC Sodium 137 mmol/L (135-144) 11/05/22 03:12 Sodium 138 mmol/L (136-145) 11/06/22 07:36 POC Potassium 4.1 mmol/L (3.3-5.0) 11/05/22 03:12 Potassium 4.4 mmol/L (3.5-5.1) 11/06/22 07:36 POC Chloride 106 mmol/L (101-112) 11/05/22 03:12 Chloride 108 mmol/L (98-107) H 11/06/22 07:36 Carbon Dioxide 27 mmol/L (21-32) 11/06/22 07:36 POC Total CO2 21 mmol/L (24-31) L 11/05/22 03:12 Anion Gap 3 (3-11) 11/06/22 07:36 POC Anion Gap 15.0 mmol/L (16-25) L 11/05/22 03:12 POC BUN 19 mg/dl (7-18) H 11/05/22 03:12 BUN 10 mg/dl (6-23) 11/06/22 07:36 Creatinine 0.80 mg/dl (0.6-1.2) 11/06/22 07:36 POC Creatinine 1.0 mg/dl (0.6-1.3) 11/05/22 03:12 Est Cr Clr Drug Dosing 92.6 ml/min 11/06/22 07:36 Est GFR ( Amer) 109.9 ml/min 11/06/22 07:36 Est GFR (Non-Af Amer) 94.9 ml/min 11/06/22 07:36 BUN/Creatinine Ratio 12.5 (10-20) 11/06/22 07:36 Glucose 87 mg/dl (70-99(Fasting)) 11/06/22 07:36 POC Glucose (other) 95 mg/dl (70-99) 11/05/22 03:12 Lactate 1.1 mmol/L (0.4-2.0) 11/05/22 05:46 Calcium 9.0 mg/dl (8.6-10.3) 11/06/22 07:36 POC Ioniz Calcium [place] 1.14 mmol/l (1.12-1.32) 11/05/22 03:12 Magnesium 1.8 mg/dl (1.7-2.4) 11/05/22 05:39 Total Bilirubin 0.3 mg/dl (0.2-1.0) 11/05/22 03:07 AST 28 U/L (13-39) 11/05/22 03:07 ALT 51 U/L (7-52) 11/05/22 03:07 Alkaline Phosphatase 62 U/L (34-104) 11/05/22 03:07 Troponin I High Sens 5.3 pg/ml (0-14) 11/05/22 05:39 Total Protein 6.7 gm/dl (6.0-8.3) 11/05/22 03:07 Albumin 4.0 gm/dl (3.4-5.0) 11/05/22 03:07 Globulin 2.7 gm/dl (2.5-4.0) 11/05/22 03:07 Albumin/Globulin Ratio 1.5 (0.9-2) 11/05/22 03:07 Urine Color Yellow 11/05/22 03:53 Urine Appearance Clear (Clear) 11/05/22 03:53 Urine pH 6.0 (4.5-7.5) 11/05/22 03:53 Ur Specific [place] 1.036 (1.000-1.030) H 11/05/22 03:53 Urine Protein Negative (Negative) 11/05/22 03:53 Urine Glucose (UA) Negative (Negative) 11/05/22 03:53 Urine Ketones Negative (Negative) 11/05/22 03:53 Urine Blood Negative (Negative) 11/05/22 03:53 Urine Nitrite Negative (Negative) 11/05/22 03:53 Urine Bilirubin Negative (Negative) 11/05/22 03:53 Urine Urobilinogen Negative (Negative) 11/05/22 03:53 Ur Leukocyte Esterase Negative (Negative) 11/05/22 03:53 Impressions Chest X-Ray 11/05/22 02:52 XR chest 1V portable CLINICAL HISTORY: Chest pain, nonspecific TECHNIQUE: Single frontal radiograph of the chest was obtained. Comparison: Comparison is made to chest radiograph 10/20/2015 FINDINGS: No lines and tubes are seen. The cardiomediastinal silhouette is normal. The lungs are clear. No evidence of pleural effusion or pneumothorax. IMPRESSION: No acute chest disease. ACT 112: Negative or not required by law. Electronically signed by: Marcelino Morales M.D. 11/05/2022 10:35 AM Chest CTA 11/05/22 02:53 CR Exam(s): CTA CHEST IV Amt: 117ml OPTIRAY 350 EXAM: CT Angiography Chest With Intravenous Contrast CLINICAL HISTORY: Reason for exam: Chest Pain, eval for PE, recent OR. TECHNIQUE: Axial computed tomographic angiography images of the chest with intravenous contrast. CTDI is 36.46 mGy and DLP is 851.5 mGy-cm. Automated exposure control was utilized for the study. A dose lowering technique was utilized adhering to the principles of ALARA. MIP reconstructed images were created and reviewed. COMPARISON: 02/01/2015. FINDINGS: Pulmonary arteries: Pulmonary embolus involving subsegmental right lower lobe pulmonary arteries. Aorta: No acute findings. No thoracic aortic aneurysm. Lungs: Unremarkable. No mass. No consolidation. Pleural space: Unremarkable. No significant effusion. No pneumothorax. Heart: Unremarkable. No cardiomegaly. No significant pericardial effusion. No evidence of RV dysfunction. Bones/joints: No acute fracture. No dislocation. Soft tissues: Unremarkable. Lymph nodes: Unremarkable. No enlarged lymph nodes. Gallbladder and bile ducts: Postoperative changes prior cholecystectomy. IMPRESSION: Pulmonary embolus involving subsegmental right lower lobe pulmonary arteries Communications: Call Doctor Pulmonary Embolism Electronically signed by: Marshall Frias MD 11/05/22 04:46 AM Venous Doppler Study 11/05/22 05:50 US venous doppler LE CLINICAL HISTORY: pe workup TECHNIQUE: Bilateral lower extremity real-time compression venous ultrasound with Color Doppler imaging. Utilizing real-time ultrasonic imaging multiple real time high-resolution ultrasonic images with compression and noncompression maneuvers of the deep venous system in addition to color doppler imaging were performed from the common femoral vein through the proximal calf veins. COMPARISON: Comparison is made to left lower extremity Doppler ultrasound 10/05/2014 FINDINGS/IMPRESSION: Currently there is normal compressibility of the deep venous system from the common femoral vein through the proximal calf veins. No superficial venous thrombosis is identified. ACT 112: Negative or not required by law. Electronically signed by: Marcelino Morales M.D. 11/05/2022 5:52 PM Ordered Studies 11/05/22 02:53 CT angio chest PE protocol Stat 11/05/22 05:50 US venous doppler LE BI Routine Hospital Course (1) Pulmonary embolism: Acute pulmonary embolism H/O Recent gynecologic surgery --CTA:Pulmonary embolus involving subsegmental right lower lobe pulmonary arteries --ECHO: Normal left ventricle wall thickness. Left ventricle wall motion is normal. Left ventricle systolic function is normal. EF 60 to 65%. Right ventricle is normal size and function. Left ventricle diastolic function is normal. No significant valvular disease. --Venous Doppler:Currently there is normal compressibility of the deep venous system from the common femoral vein through the proximal calf veins. No superficial venous thrombosis is identified. -- Hypercoagulable work-up pending Continue therapeutic Lovenox>> transition to Eliquis as per patient's preference Saturating well on room air Advised to follow-up with PCP, hematology as outpatient Ongoing tobacco use disorder Counseled to quit smoking Hyperlipidemia Continue Lipitor Mood disorder Continue Zoloft DVT Px: Lovenox SQ Code Status Full code Disposition Home Total Time Total Time Spent Total Time Spent (In Minutes): 54 minutes Discharge Plan Discharge Items Patient Disposition: Home - Self-Care Reason For Visit: PE Discharge Diagnosis: Acute pulmonary embolism Condition on Discharge: Good Activity: Per Instructions section Exercise/Sports: Wait until after follow-up appointment Non-emergency contact: Primary Care Provider Call non-emergency contact if: you have any medication questions, your symptoms worsen, your pain is concerning for you and you have a fever Follow-up/Referrals: Keturah Saravia DO [Primary Care Provider] - (Date & Time 11/10/2022 11:50 AM Provider Keturah Saravia DO Department Family [facility] ) Diet: Heart Healthy Addtl Attending Provider Instructions: Follow-up with your primary care physician Dr. Saravia on 11/10/2022 11:50 AM Follow-up with your book author as advised --Consider to quit smoking as advised --- Start taking apixaban (Eliquis) 10 mg 2 times a day for 1 week and then take 5 mg 2 times a day. Duration of anticoagulation with apixaban to be determined by your primary care physician/book author Do not take group of medications belonging to NSAIDs group -can cause worsening your risk for bleeding while on Eliquis. List Of these medications includes but not limited to: Aspirin Diclofenac Ibuprofen, Motrin, Advil Toradol,ketorolac Naproxen, Aleve, Naprosyn You can take Tylenol as needed for pain or fever When buying [id number] pain medications please consult with pharmacy if you are not sure regarding ingredients, as a lot of the pain medications have combination of NSAIDs and Tylenol. Seek immediate medical attention if your symptoms reoccur or worsen Please take all medications as instructed on discharge list below. Please call if you have any questions or problems. You can reach a [facility] hospitalist on duty at [facility] 24 hours a day by calling [phone] Pending Studies at Discharge: Yes Studies:: Hypercoagulable work up Stand-Alone Forms: My [facility], Smoking Cessation Medications and DC Order Prescriptions: New Eliquis 5 mg (74 tabs) tablets,dose pack 5 mg PO UD Qty: 74 1RF Rx Instructions: Start taking 10mg twice a day for 1 week and then take 5mg twice a day tramadol 50 mg Tablet 50 mg PO Q8H PRN (Reason: pain) Qty: 12 0RF sennosides-docusate sodium [Senokot-S] 8.6-50 mg Tablet 1 tab PO BID PRN (Reason: constipation) Qty: 30 0RF polyethylene glycol 3350 [Miralax] 17 gram Powder In Packet 17 g PO DAILY PRN (Reason: constipation) Qty: 30 0RF Continued atorvastatin 10 mg Tablet 20 mg PO QAM sertraline [Zoloft] 100 mg Tablet 100 mg PO QAM ondansetron HCl 4 mg tablet 4 mg PO Q8H PRN (Reason: Nausea And Vomiting) Discontinued ibuprofen 600 mg tablet 600 mg PO Q8H PRN (Reason: pain) Qty: 20 0RF Discharge Orders: Discharge Order (Routine); Ordered 11/06/22 Ordered By: Ricky Jordan Admission Data Admit Date/Time: 11/05/22 05:52 Attending Provider: Ricky Jordan Admit Provider: Delfino Rangel Primary Care Provider: Keturah Saravia Other Providers: Delfino Rangel.
[2022-11-10 01:42] LABS: Anti-Thrombin III Activity 103 % normal (80-135); Protein S Functional(Activity) 78 % normal (60-140)
== END 2022-11-06 14:55 | disposition home or self-care (01) | DRG 176 ==
LOC: ED 02:46 → 2N 05:52